=== PATIENT | male | born 1950 | race Caucasian/White ===

== ENCOUNTER 2024-01-05 15:16 | Outpatient (CLI) | payer MEDICARE, OTHER | END 2024-01-05 15:17 | disposition home or self-care (01) | LOC: CSHWCC 15:16 | PROVIDERS: ATTEND Nurse Practitioner Family | DX: I87.311 Chronic venous hypertension (idiopathic) with ulcer of right lower extremity (principal); L97.212 Non-pressure chronic ulcer of right calf with fat layer exposed; I73.9 Peripheral vascular disease, unspecified; Z86.718 Personal history of other venous thrombosis and embolism | CPT/HCPCS: 99211; G0463 ==

== ENCOUNTER 2024-01-09 09:14 | Outpatient (CLI) | payer MEDICARE, OTHER | END 2024-01-09 09:15 | disposition home or self-care (01) | LOC: CSHWCC 09:14 | PROVIDERS: ATTEND Nurse Practitioner Family | DX: I87.311 Chronic venous hypertension (idiopathic) with ulcer of right lower extremity (principal); L97.212 Non-pressure chronic ulcer of right calf with fat layer exposed; I73.9 Peripheral vascular disease, unspecified; Z86.718 Personal history of other venous thrombosis and embolism | CPT/HCPCS: 11042; 11045 ==

== ENCOUNTER 2024-01-16 09:24 | Outpatient (CLI) | payer MEDICARE, OTHER | END 2024-01-16 09:25 | disposition home or self-care (01) | LOC: CSHWCC 09:24 | PROVIDERS: ATTEND Nurse Practitioner Family | DX: I87.311 Chronic venous hypertension (idiopathic) with ulcer of right lower extremity (principal); L97.212 Non-pressure chronic ulcer of right calf with fat layer exposed; I73.9 Peripheral vascular disease, unspecified; Z86.718 Personal history of other venous thrombosis and embolism | CPT/HCPCS: 11042; 11045 ==

== ENCOUNTER 2024-01-30 09:07 | Outpatient (CLI) | payer MEDICARE, OTHER | END 2024-01-30 09:08 | disposition home or self-care (01) | LOC: CSHWCC 09:07 | PROVIDERS: ATTEND Nurse Practitioner Family | DX: I87.311 Chronic venous hypertension (idiopathic) with ulcer of right lower extremity (principal); L97.212 Non-pressure chronic ulcer of right calf with fat layer exposed; I73.9 Peripheral vascular disease, unspecified; Z86.718 Personal history of other venous thrombosis and embolism | CPT/HCPCS: 11042 ==

== ENCOUNTER 2024-02-06 08:53 | Outpatient (CLI) | payer MEDICARE, OTHER | END 2024-02-06 08:54 | disposition home or self-care (01) | LOC: CSHWCC 08:53 | PROVIDERS: ATTEND Nurse Practitioner Family | DX: I87.311 Chronic venous hypertension (idiopathic) with ulcer of right lower extremity (principal); L97.212 Non-pressure chronic ulcer of right calf with fat layer exposed; I73.9 Peripheral vascular disease, unspecified; Z86.718 Personal history of other venous thrombosis and embolism | CPT/HCPCS: 11042; 11045 ==

== ENCOUNTER 2024-02-13 08:51 | Outpatient (CLI) | payer MEDICARE, OTHER | END 2024-02-13 08:52 | disposition home or self-care (01) | LOC: CSHWCC 08:51 | PROVIDERS: ATTEND Nurse Practitioner Family | DX: I87.311 Chronic venous hypertension (idiopathic) with ulcer of right lower extremity (principal); L97.212 Non-pressure chronic ulcer of right calf with fat layer exposed; E11.51 Type 2 diabetes mellitus with diabetic peripheral angiopathy without gangrene; Z86.718 Personal history of other venous thrombosis and embolism | CPT/HCPCS: 11042; 11045 ==

== ENCOUNTER 2024-02-20 13:50 | Outpatient (CLI) | payer MEDICARE, OTHER | END 2024-02-20 13:51 | disposition home or self-care (01) | LOC: CSHWCC 13:50 | PROVIDERS: ATTEND Nurse Practitioner Family | DX: I87.311 Chronic venous hypertension (idiopathic) with ulcer of right lower extremity (principal); L97.212 Non-pressure chronic ulcer of right calf with fat layer exposed; I73.9 Peripheral vascular disease, unspecified; Z86.718 Personal history of other venous thrombosis and embolism | CPT/HCPCS: 11042; 11045 ==

== ENCOUNTER 2024-03-01 09:08 | Outpatient (CLI) | payer MEDICARE, OTHER | END 2024-03-01 09:09 | disposition home or self-care (01) | LOC: CSHWCC 09:08 | PROVIDERS: ATTEND Nurse Practitioner Family | DX: I87.311 Chronic venous hypertension (idiopathic) with ulcer of right lower extremity (principal); L97.212 Non-pressure chronic ulcer of right calf with fat layer exposed; I73.9 Peripheral vascular disease, unspecified; Z86.718 Personal history of other venous thrombosis and embolism | CPT/HCPCS: 11042; 11045 ==

== ENCOUNTER 2024-03-08 14:33 | Outpatient (CLI) | payer MEDICARE, OTHER | END 2024-03-08 14:34 | disposition home or self-care (01) | LOC: CSHWCC 14:33 | PROVIDERS: ATTEND Nurse Practitioner Family | DX: I87.311 Chronic venous hypertension (idiopathic) with ulcer of right lower extremity (principal); L97.212 Non-pressure chronic ulcer of right calf with fat layer exposed; I73.9 Peripheral vascular disease, unspecified; Z86.718 Personal history of other venous thrombosis and embolism | CPT/HCPCS: 11042 ==

== ENCOUNTER 2024-04-02 09:49 | Outpatient (CLI) | payer MEDICARE, OTHER | END 2024-04-02 09:50 | disposition home or self-care (01) | LOC: CSHWCC 09:49 | PROVIDERS: ATTEND Nurse Practitioner Family | DX: I87.311 Chronic venous hypertension (idiopathic) with ulcer of right lower extremity (principal); L97.212 Non-pressure chronic ulcer of right calf with fat layer exposed; I73.9 Peripheral vascular disease, unspecified; Z86.718 Personal history of other venous thrombosis and embolism | CPT/HCPCS: 11042; 11045 ==

== ENCOUNTER 2024-08-19 10:53 | Outpatient (CLI) | payer MEDICARE, OTHER | END 2024-08-19 10:54 | disposition home or self-care (01) | LOC: CSHWCC 10:53 | PROVIDERS: ATTEND Nurse Practitioner Family | DX: S71.102D Unspecified open wound, left thigh, subsequent encounter (principal); T81.31XD Disruption of external operation (surgical) wound, not elsewhere classified, subsequent encounter; I87.311 Chronic venous hypertension (idiopathic) with ulcer of right lower extremity; L97.212 Non-pressure chronic ulcer of right calf with fat layer exposed; L97.311 Non-pressure chronic ulcer of right ankle limited to breakdown of skin; I73.9 Peripheral vascular disease, unspecified; Z86.718 Personal history of other venous thrombosis and embolism; Z85.828 Personal history of other malignant neoplasm of skin | CPT/HCPCS: 11042; 97597 ==

== ENCOUNTER 2024-10-01 13:27 | Outpatient (CLI) | payer MEDICARE, OTHER | END 2024-10-01 13:28 | disposition home or self-care (01) | LOC: CSHWCC 13:27 | PROVIDERS: ATTEND Nurse Practitioner Family | DX: S71.102D Unspecified open wound, left thigh, subsequent encounter (principal); T81.31XD Disruption of external operation (surgical) wound, not elsewhere classified, subsequent encounter; I87.311 Chronic venous hypertension (idiopathic) with ulcer of right lower extremity; L97.212 Non-pressure chronic ulcer of right calf with fat layer exposed; L97.311 Non-pressure chronic ulcer of right ankle limited to breakdown of skin; I73.9 Peripheral vascular disease, unspecified; Z86.718 Personal history of other venous thrombosis and embolism; Z85.828 Personal history of other malignant neoplasm of skin | CPT/HCPCS: 11042 ==

== ENCOUNTER 2024-10-08 10:09 | Outpatient (CLI) | payer MEDICARE, OTHER | END 2024-10-08 10:10 | disposition home or self-care (01) | LOC: CSHWCC 10:09 | PROVIDERS: ATTEND Nurse Practitioner Family | DX: S71.102D Unspecified open wound, left thigh, subsequent encounter (principal); T81.31XD Disruption of external operation (surgical) wound, not elsewhere classified, subsequent encounter; I87.311 Chronic venous hypertension (idiopathic) with ulcer of right lower extremity; L97.212 Non-pressure chronic ulcer of right calf with fat layer exposed; L97.311 Non-pressure chronic ulcer of right ankle limited to breakdown of skin; I73.9 Peripheral vascular disease, unspecified; Z86.718 Personal history of other venous thrombosis and embolism; Z85.828 Personal history of other malignant neoplasm of skin | CPT/HCPCS: 11042; 97597 ==

== ENCOUNTER 2024-10-15 10:35 | Outpatient (CLI) | payer MEDICARE, OTHER | END 2024-10-15 10:36 | disposition home or self-care (01) | LOC: CSHWCC 10:35 | PROVIDERS: ATTEND Nurse Practitioner Family | DX: S71.102D Unspecified open wound, left thigh, subsequent encounter (principal); T81.31XD Disruption of external operation (surgical) wound, not elsewhere classified, subsequent encounter; I87.311 Chronic venous hypertension (idiopathic) with ulcer of right lower extremity; L97.212 Non-pressure chronic ulcer of right calf with fat layer exposed; L97.311 Non-pressure chronic ulcer of right ankle limited to breakdown of skin; I73.9 Peripheral vascular disease, unspecified; Z86.718 Personal history of other venous thrombosis and embolism; Z85.828 Personal history of other malignant neoplasm of skin ==

== ENCOUNTER 2024-10-21 09:40 | Outpatient (CLI) | payer MEDICARE, OTHER | END 2024-10-21 09:41 | disposition home or self-care (01) | LOC: CSHWCC 09:40 | PROVIDERS: ATTEND Nurse Practitioner Family | DX: S71.102D Unspecified open wound, left thigh, subsequent encounter (principal); T81.31XD Disruption of external operation (surgical) wound, not elsewhere classified, subsequent encounter; I87.311 Chronic venous hypertension (idiopathic) with ulcer of right lower extremity; L97.212 Non-pressure chronic ulcer of right calf with fat layer exposed; L97.311 Non-pressure chronic ulcer of right ankle limited to breakdown of skin; I73.9 Peripheral vascular disease, unspecified; Z86.718 Personal history of other venous thrombosis and embolism; Z85.828 Personal history of other malignant neoplasm of skin | CPT/HCPCS: 15271; Q4133 ==

== ENCOUNTER 2024-10-29 09:26 | Outpatient (CLI) | payer MEDICARE, OTHER | END 2024-10-29 09:27 | disposition home or self-care (01) | LOC: CSHWCC 09:26 | PROVIDERS: ATTEND Nurse Practitioner Family | DX: S71.102D Unspecified open wound, left thigh, subsequent encounter (principal); T81.31XD Disruption of external operation (surgical) wound, not elsewhere classified, subsequent encounter; I87.311 Chronic venous hypertension (idiopathic) with ulcer of right lower extremity; L97.311 Non-pressure chronic ulcer of right ankle limited to breakdown of skin; L97.212 Non-pressure chronic ulcer of right calf with fat layer exposed; I73.9 Peripheral vascular disease, unspecified; Z86.718 Personal history of other venous thrombosis and embolism; Z85.828 Personal history of other malignant neoplasm of skin | CPT/HCPCS: 15271; Q4133 ==

== ENCOUNTER 2024-11-05 09:29 | Outpatient (CLI) | payer MEDICARE, OTHER | END 2024-11-05 09:30 | disposition home or self-care (01) | LOC: CSHWCC 09:29 | PROVIDERS: ATTEND Nurse Practitioner Family | DX: T81.31XD Disruption of external operation (surgical) wound, not elsewhere classified, subsequent encounter (principal); I87.311 Chronic venous hypertension (idiopathic) with ulcer of right lower extremity; L97.311 Non-pressure chronic ulcer of right ankle limited to breakdown of skin; I73.9 Peripheral vascular disease, unspecified; Z86.718 Personal history of other venous thrombosis and embolism; Z85.828 Personal history of other malignant neoplasm of skin | CPT/HCPCS: 11042; G0463; 99213 ==

== ENCOUNTER 2024-11-12 13:13 | Outpatient (CLI) | payer MEDICARE, OTHER | END 2024-11-12 13:14 | disposition home or self-care (01) | LOC: CSHWCC 13:13 | PROVIDERS: ATTEND Nurse Practitioner Family | DX: I87.311 Chronic venous hypertension (idiopathic) with ulcer of right lower extremity (principal); L97.311 Non-pressure chronic ulcer of right ankle limited to breakdown of skin; L97.212 Non-pressure chronic ulcer of right calf with fat layer exposed; I73.9 Peripheral vascular disease, unspecified; L08.9 Local infection of the skin and subcutaneous tissue, unspecified; Z86.718 Personal history of other venous thrombosis and embolism; Z85.828 Personal history of other malignant neoplasm of skin | CPT/HCPCS: 11042; G0463; 99214 ==

== ENCOUNTER 2024-11-19 09:07 | Outpatient (CLI) | payer MEDICARE, OTHER | END 2024-11-19 09:08 | disposition home or self-care (01) | LOC: CSHWCC 09:07 | PROVIDERS: ATTEND Nurse Practitioner Family | DX: I87.311 Chronic venous hypertension (idiopathic) with ulcer of right lower extremity (principal); L97.311 Non-pressure chronic ulcer of right ankle limited to breakdown of skin; L97.212 Non-pressure chronic ulcer of right calf with fat layer exposed; L08.9 Local infection of the skin and subcutaneous tissue, unspecified; I73.9 Peripheral vascular disease, unspecified; Z86.718 Personal history of other venous thrombosis and embolism; Z85.828 Personal history of other malignant neoplasm of skin | CPT/HCPCS: 15271; 99213; G0463; Q4133 ==

== ENCOUNTER 2024-12-03 09:04 | Outpatient (CLI) | payer MEDICARE, OTHER | END 2024-12-03 09:05 | disposition home or self-care (01) | LOC: CSHWCC 09:04 | PROVIDERS: ATTEND Nurse Practitioner Family | DX: I87.311 Chronic venous hypertension (idiopathic) with ulcer of right lower extremity (principal); L97.311 Non-pressure chronic ulcer of right ankle limited to breakdown of skin; L97.212 Non-pressure chronic ulcer of right calf with fat layer exposed; I73.9 Peripheral vascular disease, unspecified; C44.712 Basal cell carcinoma of skin of right lower limb, including hip; Z86.718 Personal history of other venous thrombosis and embolism; Z85.828 Personal history of other malignant neoplasm of skin | CPT/HCPCS: 99213; G0463 ==

== ENCOUNTER 2024-12-17 08:54 | Outpatient (CLI) | payer MEDICARE, OTHER | END 2024-12-17 08:55 | disposition home or self-care (01) | LOC: CSHWCC 08:54 | PROVIDERS: ATTEND Nurse Practitioner Family | DX: I87.311 Chronic venous hypertension (idiopathic) with ulcer of right lower extremity (principal); L97.311 Non-pressure chronic ulcer of right ankle limited to breakdown of skin; L97.212 Non-pressure chronic ulcer of right calf with fat layer exposed; I73.9 Peripheral vascular disease, unspecified; C44.712 Basal cell carcinoma of skin of right lower limb, including hip; Z86.718 Personal history of other venous thrombosis and embolism; Z85.828 Personal history of other malignant neoplasm of skin | CPT/HCPCS: 97597 ==

== ENCOUNTER 2025-01-07 08:50 | Outpatient (CLI) | payer MEDICARE, OTHER | END 2025-01-07 08:51 | disposition home or self-care (01) | LOC: CSHWCC 08:50 | PROVIDERS: ATTEND Nurse Practitioner Family | DX: I87.311 Chronic venous hypertension (idiopathic) with ulcer of right lower extremity (principal); L97.311 Non-pressure chronic ulcer of right ankle limited to breakdown of skin; L97.212 Non-pressure chronic ulcer of right calf with fat layer exposed; C44.712 Basal cell carcinoma of skin of right lower limb, including hip; I73.9 Peripheral vascular disease, unspecified; Z85.828 Personal history of other malignant neoplasm of skin; Z86.718 Personal history of other venous thrombosis and embolism | CPT/HCPCS: 99213; G0463 ==